=== PATIENT | female | born 1995 | race Asian ===

== ENCOUNTER 2016-10-19 08:30 | Inpatient (IN) | payer OTHER ==
[~2016-10-19] VITALS: Ht 152.4 cm; Wt 58.2 kg
[~2016-10-19 08:30] MED LIST: LORA10TA3 PO; OMEP20CA16 PO; PRENAT PO; PROM25SU40 PR
[2016-10-19] MEDS ORDERED: LACTATED RINGER'S 1,000 ML IV PRN (09:30)
[2016-10-19 09:51] VITALS: Ht 152.4 cm; Wt 58.2 kg
[2016-10-19] MEDS ORDERED: BUTORPHANOL 2 MG INJ IV PRN (10:00)
[2016-10-19] MEDS ORDERED: MISOPROSTOL 200 MCG TAB PR PRN (10:00)
[2016-10-19] MEDS ORDERED: CARBOPROST 250 MCG INJ IM PRN (10:00)
[2016-10-19] MEDS ORDERED: LIDOCAINE 1% (MPF) 30 ML INJ INJ PRN (10:00)
[2016-10-19] MEDS ORDERED: METHYLERGONOVINE 0.2 MG INJ IM PRN (10:00)
[2016-10-19] MEDS ORDERED: OXYTOCIN 30 UNITS/LR 500 ML IV PRN (10:00)
[2016-10-19] MEDS ORDERED: OXYTOCIN 30 UNITS/LR 500 ML IV SCH ×2 (10:00)
[2016-10-19 10:14] LABS: ADD SCAN DIFF NO
[2016-10-19 10:20] LABS: BASOPHILS % 0.4 % (0.0-2.0); EOSINOPHILS # 0.2 10^3/ul (0.0-0.5); EOSINOPHILS % 1.4 % (0.0-7.0); HEMOGLOBIN 12.3 g/dl (12.0-16.0); LYMPHOCYTES # 1.8 10^3/ul (0.8-2.9); LYMPHOCYTES % 17.5 % (15.0-51.0); MEAN CORPUSCULAR HGB CONC 32.4 g/dl (32.0-37.0); MEAN CORPUSCULAR VOLUME 89.6 fl (82.0-101.0); MEAN PLATELET VOLUME 12.4 fl (7.4-10.4); MONOCYTE # 0.7 10^3/ul (0.3-0.9); MONOCYTES % 6.2 % (0.0-11.0); NEUTROPHIL # 7.7 10^3/ul (1.6-7.5); NEUTROPHILS % 73.5 % (39.0-77.0); PLATELET COUNT 182 10^3/UL (140-415); RED BLOOD COUNT 4.24 10^6/ul (4.20-5.40); RED CELL DISTRIBUTION WIDTH 14.8 % (11.5-14.5); WHITE BLOOD COUNT 10.4 10^3/ul (4.8-10.8)
[2016-10-19] MEDS: LACTATED RINGER'S 1,000 ML IV SCH ×3 (10:24→23:09)
[2016-10-19] MEDS ORDERED: DINOPROSTONE 10 MG VAG SUPP VAG ONE (10:30)
[2016-10-19 10:33] LABS: INR 0.86; PROTIME 11.7 Sec (12.2-14.2); PT RATIO 0.9
[2016-10-19] MEDS ORDERED: DEXTROSE 5%-LR 1,000 ML IV SCH (21:30)
[2016-10-19] MEDS ORDERED: DEXTROSE 5%-LR 1,000 ML IV PRN (21:30)
[2016-10-19] MEDS: LABETALOL 100 MG TAB PO SCH (21:59)
[2016-10-19 22:16] LABS: ADD SCAN DIFF NO
[2016-10-19 22:20] LABS: BASOPHILS % 0.4 % (0.0-2.0); EOSINOPHILS # 0.1 10^3/ul (0.0-0.5); EOSINOPHILS % 1.3 % (0.0-7.0); HEMATOCRIT 33.8 % (37.0-47.0); HEMOGLOBIN 11.4 g/dl (12.0-16.0); LYMPHOCYTES # 1.9 10^3/ul (0.8-2.9); LYMPHOCYTES % 20.5 % (15.0-51.0); MEAN CORPUSCULAR HEMOGLOBIN 29.7 pg (29.0-33.0); MEAN CORPUSCULAR HGB CONC 33.7 g/dl (32.0-37.0); MEAN PLATELET VOLUME 12.3 fl (7.4-10.4); MONOCYTE # 0.8 10^3/ul (0.3-0.9); NEUTROPHIL # 6.5 10^3/ul (1.6-7.5); NEUTROPHILS % 69.2 % (39.0-77.0); PLATELET COUNT 171 10^3/UL (140-415); RED BLOOD COUNT 3.84 10^6/ul (4.20-5.40); RED CELL DISTRIBUTION WIDTH 14.6 % (11.5-14.5); WHITE BLOOD COUNT 9.4 10^3/ul (4.8-10.8)
[2016-10-19 22:34] LABS: POTASSIUM 3.7 mmol/L (3.5-5.1)
[2016-10-19 22:36] LABS: ALBUMIN/GLOBULIN RATIO 1.03; BILIRUBIN,INDIRECT 0.1 mg/dl (0-1.1); BILIRUBIN,TOTAL 0.1 mg/dl (0.2-1.3); CREATININE 0.55 mg/dl (0.44-1.00); INR 0.86; PROTIME 11.7 Sec (12.2-14.2); PT RATIO 0.9; TOTAL PROTEIN 5.9 g/dl (6.1-8.1)
[2016-10-19 22:37] LABS: CALCIUM 8.7 mg/dl (8.4-10.2); PARTIAL THROMBOPLASTIN TIME 26.1 Sec (25.0-35.0); URIC ACID 6.6 mg/dl (3.1-7.9)
[2016-10-19 22:51] LABS: FIBRIN SPLIT PRODUCT <10 ug/ml (<10)
[2016-10-19 23:51] LABS: ADD UMIC NO; URINE BILIRUBIN (Dip) NEGATIVE (NEGATIVE); URINE BLOOD (Dip) NEGATIVE (NEGATIVE); URINE COLOR LT. YELLOW (YELLOW); URINE GLUCOSE (Dip) NEGATIVE (NEGATIVE); URINE KETONES (Dip) NEGATIVE (NEGATIVE); URINE LEUKOCYTE ESTERASE (Dip) NEGATIVE (NEGATIVE); URINE NITRITE (Dip) NEGATIVE (NEGATIVE); URINE TOTAL PROTEIN (Dip) NEGATIVE (NEGATIVE); URINE UROBILINOGEN (Dip) 0.2 E.U./dL (0.1-1.0)
[2016-10-20] VITALS (7 sets, daily range): BP systolic 115–142; BP diastolic 67–87; PULSE 74–93; RESP 18–20
[2016-10-20] MEDS ORDERED: MAGNESIUM SULFATE 20 GM/500 ML 500 ML IV SCH (03:30)
[2016-10-20] MEDS ORDERED: MAGNESIUM SULFATE 4 GM/100 ML 100 ML IVPB ONE (03:30)
[2016-10-20] MEDS ORDERED: DEXTROSE 5%-LR 1,000 ML IV SCH (08:30)
[2016-10-20 09:44] LABS: ADD SCAN DIFF NO
[2016-10-20 09:45] LABS: BASOPHIL # 0.1 10^3/ul (0.0-0.1); BASOPHILS % 0.6 % (0.0-2.0); EOSINOPHILS # 0.2 10^3/ul (0.0-0.5); EOSINOPHILS % 1.9 % (0.0-7.0); HEMATOCRIT 35.6 % (37.0-47.0); HEMOGLOBIN 11.8 g/dl (12.0-16.0); LYMPHOCYTES # 1.8 10^3/ul (0.8-2.9); LYMPHOCYTES % 17.9 % (15.0-51.0); MEAN CORPUSCULAR HEMOGLOBIN 29.6 pg (29.0-33.0); MEAN CORPUSCULAR HGB CONC 33.1 g/dl (32.0-37.0); MEAN CORPUSCULAR VOLUME 89.2 fl (82.0-101.0); MEAN PLATELET VOLUME 12.6 fl (7.4-10.4); MONOCYTE # 0.6 10^3/ul (0.3-0.9); MONOCYTES % 6.4 % (0.0-11.0); NEUTROPHIL # 7.1 10^3/ul (1.6-7.5); NEUTROPHILS % 72.3 % (39.0-77.0); PLATELET COUNT 188 10^3/UL (140-415); RED BLOOD COUNT 3.99 10^6/ul (4.20-5.40); RED CELL DISTRIBUTION WIDTH 14.6 % (11.5-14.5); WHITE BLOOD COUNT 9.8 10^3/ul (4.8-10.8)
[2016-10-20 09:59] LABS: ALBUMIN 3.2 g/dl (3.3-4.9)
[2016-10-20 10:00] LABS: POTASSIUM 4.1 mmol/L (3.5-5.1)
[2016-10-20 10:02] LABS: ALBUMIN/GLOBULIN RATIO 0.86; BILIRUBIN,INDIRECT 0.1 mg/dl (0-1.1); BILIRUBIN,TOTAL 0.1 mg/dl (0.2-1.3); CREATININE 0.53 mg/dl (0.44-1.00); TOTAL PROTEIN 6.9 g/dl (6.1-8.1)
[2016-10-20 10:03] LABS: CALCIUM 8.2 mg/dl (8.4-10.2)
[2016-10-20] MEDS ORDERED: LACTATED RINGER'S 1,000 ML IV ONE (10:36)
[2016-10-20] MEDS ORDERED: CEFAZOLIN 2 GM/50 ML (PMX) 50 ML IVPB ONE (10:40)
[2016-10-20] MEDS: LABETALOL 100 MG TAB PO SCH ×2 (10:46→21:33)
[2016-10-20] MEDS ORDERED: CEFAZOLIN 2 GM/50 ML (PMX) 50 ML IVPB SCH (11:00)
[2016-10-20] MEDS ORDERED: CITRIC ACID/NA CITRATE 30 ML CUP PO ONE (11:00)
[2016-10-20] MEDS ORDERED: ONDANSETRON 4 MG INJ IV ONE (11:00)
[2016-10-20] MEDS ORDERED: METOCLOPRAMIDE 10 MG INJ ONE (11:15)
[2016-10-20] MEDS ORDERED: FENTAnyl 50 MCG/ML VIAL ONE (11:15)
[2016-10-20] MEDS ORDERED: morphine SULFATE/PF (10 MG/10 ML) INJ ONE (11:15)
[2016-10-20] MEDS ORDERED: DIPHENHYDRAMINE 50 MG INJ ONE (12:10)
[2016-10-20] MEDS ORDERED: EPHEDrine SULFATE 50 MG/5 ML SYG ONE (12:11)
[2016-10-20] MEDS ORDERED: MEPERIDINE 100 MG INJ ONE (12:38)
[2016-10-20] MEDS ORDERED: ONDANSETRON 4 MG INJ IV PRN (13:00)
[2016-10-20] MEDS ORDERED: NALOXONE (0.4 MG/ML) INJ IV PRN (13:00)
[2016-10-20] MEDS ORDERED: PROCHLORPERAZINE 10 MG INJ IV PRN (13:00)
[2016-10-20] MEDS ORDERED: KETOROLAC 30 MG INJ IV PRN (13:00)
[2016-10-20] MEDS ORDERED: DIPHENHYDRAMINE 50 MG INJ IV PRN (13:00)
[2016-10-20] MEDS ORDERED: HYDROmorphONE 1 MG/ML SYG IV PRN ×2 (13:00)
[2016-10-20] MEDS ORDERED: LACTATED RINGER'S 1,000 ML IV SCH (13:05)
--- NOTE | 2016-10-20 13:14 | PREOPHP ---
DATE OF ADMISSION: 10/19/2016 HISTORY OF PRESENT ILLNESS: This is a 21-year-old female 1, para 0 with an EDC of 7. This patient came early in for care. She had an uneventful and she was diagnosed with gestational diabetes and diet control. The patient was admitted for induction o f labor, which was with no progress of labor and she started having severe headache with no resoluti on of her headache. She was given IV magnesium sulfate and also labetalol 100 mg b.i.d. due to bord kalina hypertension. Her laboratory testing for PIH were all normal except for uric acid that was e levated. The patient was not having any hyperreflexia, normal reflexes and no edema, but she had a continuous headache. The patient was advised for a primary section due to the extreme head ache that she was having continuously without alleviation and also because of no progress of labor. PAST MEDICAL HISTORY: Unremarkable. ALLERGIES: 1. TYLENOL 2. IBUPROFEN PAST SURGICAL HISTORY: She had never had any surgeries. SOCIAL HISTORY: Denies. FAMILY HISTORY: No family history of medical antecedents as well. PHYSICAL EXAMINATION: VITAL SIGNS: Blood pressure is 120/80 on labetalol 100 mg b.i.d. HEAD AND NECK: Normal. CHEST: Clear. HEART: Normal sinus rhythm. LUNGS: Clear. BREASTS: Soft, nontender, no masses. ABDOMEN: Soft. Uterus at term with normal heart tones. PELVIC: With the cervix that is fingertip dilated, fixed, 50% effaced, soft, -3. Membranes intact. EXTREMITIES: Normal with normal pulses, no edema. Normal reflexes. DIAGNOSES: 1. Term . 2. Gestational diabetes mellitus, diet controlled. 3. No progress of labor. 4. Mild induced hypertension. PLAN: She is undergoing a primary section. She has been advised of the possible risks and possible complications of the procedure with her alternatives and options. Written information was provided. She had no more questions and agreed to go ahead with the procedure with full understand ing and no more questions. Dictated By: YOVANA PERALTA/NTS Conf#: [id number] DID#: [id number]
[2016-10-20] MEDS ORDERED: OXYTOCIN 30 UNITS/LR 500 ML IV ONE (13:17)
--- NOTE | 2016-10-20 13:26 | OPR ---
DATE OF OPERATION: 10/20/2016 PROCEDURE: Primary low segment transverse section. PREOPERATIVE DIAGNOSES: 1. Term . 2. Gestational diabetes mellitus, diet controlled. 3. No progress of labor. 4. Mild -induced hypertension. POSTOPERATIVE DIAGNOSES: 1. Term . 2. Gestational diabetes mellitus, diet controlled. 3. No progress of labor. 4. Mild -induced hypertension. SURGEON: Dr. Paez SCIENCE FACULTY MEMBER: ____ ANESTHESIOLOGIST: Dr. Loja ANESTHESIA: Spinal. PROCEDURE: The patient was given a spinal anesthesia, placed in the supine position. The abdomen w as prepped and draped, and a Kline catheter was placed in the bladder. The transverse incision marck g 2 cm up the pubic bone was made. The abdomen was opened in layers without difficulties. Abdomina l cavity was reached and the self-retaining Mario retractor was placed and the bladder flap was mad e. The uterus was opened in the midline with a scalpel and the incision was increased laterally for about 3 inches. The amniotic fluid was clear. The baby's head was large. The cord was passed olayinka und the baby's head and with the help of a vacuum due to the size of the head, we delivered her. Th e baby was large. The cord was clamped and cut. The baby was handed over to the anesthesiologist hossein jha. A piece of the cord was collected to be sent for cord pH, but the baby's status was good, so w e did not send it. Cord blood was obtained. The placenta was removed. The cervix was opened with a ring forceps and the uterus was closed with #1 looped suture continuously in 2 layers. Hemostasis was good and a few interrupted sutures were placed with 0 chromic automatic needle. The tubes and ovaries and uterus appeared to be normal. The abdomen was cleaned out from ____ products and a piec e of Interceed was placed on the incisional area for prevention of adhesions. The peritoneum was cl osed with a 2-0 Vicryl suture. The fascia was closed with 0 PDS looped suture. The subcutaneous ti ssue was closed with a 2-0 Vicryl suture and the skin was closed with a 3-[address] itch. Steri-Strips and Dermabond were applied. The patient tolerated the procedure well and left t he OR awake and stable. Sponge counts, instrument counts, needle counts were correct and intravenou s antibiotics were given for prophylaxis. Dictated By: YOVANA PERALTA/SUMA Conf#: [id number] DID#: [id number]
[2016-10-20] MEDS ORDERED: NA PHOSPHATE/BIPHOS 133 ML ENEMA PR PRN (13:30)
[2016-10-20] MEDS ORDERED: METHYLERGONOVINE 0.2 MG TAB PO PRN (13:30)
[2016-10-20] MEDS ORDERED: PROMETHAZINE 25 MG SUPP PR PRN (13:30)
[2016-10-20] MEDS ORDERED: METHYLERGONOVINE 0.2 MG INJ IM PRN (13:30)
[2016-10-20] MEDS ORDERED: OXYTOCIN 30 UNITS/LR 500 ML IV PRN (13:30)
[2016-10-20] MEDS ORDERED: MISOPROSTOL 200 MCG TAB PR PRN (13:30)
[2016-10-20] MEDS ORDERED: LANOLIN 7 GM TUBE TOP PRN (13:30)
[2016-10-20] MEDS ORDERED: CARBOPROST 250 MCG INJ IM PRN (13:30)
[2016-10-20] MEDS: OXYTOCIN 30 UNITS/LR 500 ML IV SCH ×2 (13:42→19:41)
[2016-10-20] MEDS ORDERED: MAGNESIUM SULFATE 1 GM/D5W 100 ML IVPB SCH (14:00)
[2016-10-20] MEDS: MAGNESIUM SULFATE 20 GM/500 ML 500 ML IV SCH ×2 (14:29→17:20)
[2016-10-20] MEDS: CEFAZOLIN 1 GM/50 ML (PMX) 50 ML IVPB SCH (17:16)
[2016-10-20] MEDS: SENNA/DOCUSATE NA (8.6MG/50MG) TAB PO SCH (21:00)
[2016-10-20] MEDS ORDERED: LABETALOL 100 MG TAB PO SCH (21:30)
[2016-10-21] VITALS (13 sets, daily range): BP systolic 119–145; BP diastolic 62–91; PULSE 83–105; RESP 18–20
[2016-10-21] MEDS: CEFAZOLIN 1 GM/50 ML (PMX) 50 ML IVPB SCH ×2 (02:34→10:53)
[2016-10-21] MEDS: oxyCODONE 5 MG TAB PO PRN ×2 (02:34→15:44)
[2016-10-21] MEDS: PANTOPRAZOLE (EC) 40 MG TAB PO SCH (05:56)
[2016-10-21 07:56] LABS: ADD SCAN DIFF NO
[2016-10-21 08:00] LABS: BASOPHILS % 0.3 % (0.0-2.0); EOSINOPHILS # 0.1 10^3/ul (0.0-0.5); HEMATOCRIT 34.5 % (37.0-47.0); HEMOGLOBIN 11.5 g/dl (12.0-16.0); LYMPHOCYTES # 1.6 10^3/ul (0.8-2.9); LYMPHOCYTES % 11.8 % (15.0-51.0); MEAN CORPUSCULAR HEMOGLOBIN 29.3 pg (29.0-33.0); MEAN CORPUSCULAR HGB CONC 33.3 g/dl (32.0-37.0); MEAN PLATELET VOLUME 11.6 fl (7.4-10.4); MONOCYTE # 0.8 10^3/ul (0.3-0.9); MONOCYTES % 5.6 % (0.0-11.0); NEUTROPHIL # 10.9 10^3/ul (1.6-7.5); NEUTROPHILS % 80.9 % (39.0-77.0); PLATELET COUNT 152 10^3/UL (140-415); RED BLOOD COUNT 3.92 10^6/ul (4.20-5.40); RED CELL DISTRIBUTION WIDTH 14.8 % (11.5-14.5); WHITE BLOOD COUNT 13.5 10^3/ul (4.8-10.8)
[2016-10-21] MEDS: SENNA/DOCUSATE NA (8.6MG/50MG) TAB PO SCH ×2 (08:18→21:36)
[2016-10-21] MEDS: LABETALOL 100 MG TAB PO SCH ×2 (08:20→21:00)
[2016-10-21 08:43] LABS: ALBUMIN 2.7 g/dl (3.3-4.9)
[2016-10-21 08:44] LABS: POTASSIUM 4.1 mmol/L (3.5-5.1)
[2016-10-21 08:46] LABS: ALBUMIN/GLOBULIN RATIO 0.72; BILIRUBIN,INDIRECT 0.2 mg/dl (0-1.1); BILIRUBIN,TOTAL 0.2 mg/dl (0.2-1.3); CREATININE 0.63 mg/dl (0.44-1.00); TOTAL PROTEIN 6.4 g/dl (6.1-8.1); URIC ACID 7.2 mg/dl (3.1-7.9)
[2016-10-21 08:47] LABS: CALCIUM 7.6 mg/dl (8.4-10.2)
[2016-10-21 09:42] LABS: INR 0.93; PARTIAL THROMBOPLASTIN TIME 28.4 Sec (25.0-35.0); PROTIME 12.5 Sec (12.2-14.2)
--- NOTE | 2016-10-21 10:43 | PN ---
Date/Time of Note Date/Time of Note DATE: 10/21/16 TIME: 10:42 Assessment/Plan Lines/Catheters IV Catheter Type (from Nrsg): Peripheral IV Subjective 24 Hr Interval Summary feels good, not in pain gassy and having no headaches Constitutional: BM, ambulates, flatus, improved, no complaints, urine output Feeding: advancing diet Detailed Summary Eyes: no complaints ENT: no complaints Respiratory: no complaints Cardiovascular: no complaints Gastrointestinal: no complaints Genitourinary: no complaints Musculoskeletal: no complaints Skin: no complaints Neurologic: no complaints Endocrine: no complaints Lymphatic: no complaints Psychological: nl mood/affect, no complaints Immunologic: no complaints Exam/Review of Systems Vital Signs Vitals Vital Signs Date Time Temp Pulse Resp B/P Pulse Ox O2 Delivery O2 Flow Rate FiO2 10/21/16 09:00 91 18 125/84 Room Air 10/21/16 08:00 99.7 10/21/16 03:05 96 21 Intake and Output 10/20/16 10/20/16 10/21/16 15:00 23:00 07:00 Intake Total 1700 ml 300 ml Output Total 1500 ml 3900 ml 1500 ml Balance 200 ml -3600 ml -1500 ml Exam Constitutional: alert, oriented, well developed Psych: nl mood/affect, no complaints Head: atraumatic, normocephalic Eyes: EOMI, nl conjunctiva, nl lids, nl sclera ENMT: mucosa pink and moist, nl external ears & nose, nl lips & teeth, nl nasal mucosa & septum Neck: non-tender, supple Respiratory: clear to auscultation, normal air movement Cardiovascular: nl pulses, regular rate and rhythm Gastrointestinal: nl liver, spleen, non-tender, soft Musculoskeletal: nl extremities to inspection, nl gait and stance Extremities: normal pulses Neurological: GENERAL ADJUSTER II-XII intact, nl mental status, nl speech, nl strength Skin: nl turgor, rash or lesions Lymph: nl lymph nodes Results Result Diagram: 10/21/16 0730 10/21/16 0730 YOVANA ANDREA MD Oct 21, 2016 10:43
[2016-10-21 10:54] LABS: FIBRIN SPLIT PRODUCT <10 ug/ml (<10)
[2016-10-21] MEDS ORDERED: BISACODYL (EC) 5 MG TAB PO ONE (11:00)
[2016-10-21] MEDS: METOCLOPRAMIDE 10 MG INJ IV SCH ×2 (12:08→19:00)
[2016-10-22] VITALS (7 sets, daily range): BP systolic 114–137; BP diastolic 63–87; PULSE 72–97; RESP 16–19
[2016-10-22] MEDS: METOCLOPRAMIDE (1 MG/ML) 10 ML CUP PO SCH ×4 (00:13→17:47)
[2016-10-22] MEDS: oxyCODONE 5 MG TAB PO PRN ×4 (04:02→23:17)
[2016-10-22] MEDS: PANTOPRAZOLE (EC) 40 MG TAB PO SCH (05:51)
[2016-10-22] MEDS: SENNA/DOCUSATE NA (8.6MG/50MG) TAB PO SCH ×2 (09:00→21:14)
[2016-10-22] MEDS: LABETALOL 100 MG TAB PO SCH ×2 (09:00→21:14)
--- NOTE | 2016-10-22 11:07 | PN ---
Date/Time of Note Date/Time of Note DATE: 10/22/16 TIME: 11:05 Assessment/Plan Lines/Catheters IV Catheter Type (from Nrsg): Peripheral IV Subjective 24 Hr Interval Summary day 2 post c/s afebrile, feels good. had BM having pain, still bloated lochia is normal Constitutional: BM, ambulates, flatus, improved, no complaints, urine output Feeding: advancing diet Detailed Summary Eyes: no complaints ENT: no complaints Respiratory: no complaints Cardiovascular: no complaints Gastrointestinal: no complaints Genitourinary: no complaints Musculoskeletal: no complaints Skin: no complaints Neurologic: no complaints Endocrine: no complaints Lymphatic: no complaints Psychological: nl mood/affect, no complaints Immunologic: no complaints Exam/Review of Systems Vital Signs Vitals Vital Signs Date Time Temp Pulse Resp B/P Pulse Ox O2 Delivery O2 Flow Rate FiO2 10/22/16 08:00 98.9 89 18 119/71 Room Air 10/21/16 03:05 96 21 Intake and Output 10/21/16 10/21/16 10/22/16 15:00 23:00 07:00 Intake Total 800 ml Output Total 2500 ml 1000 ml Balance -1700 ml -1000 ml Exam Constitutional: alert, oriented, well developed Psych: nl mood/affect, no complaints Head: atraumatic, normocephalic Eyes: EOMI, nl conjunctiva, nl lids, nl sclera ENMT: mucosa pink and moist, nl external ears & nose, nl lips & teeth, nl nasal mucosa & septum Neck: non-tender, supple Respiratory: clear to auscultation, normal air movement Cardiovascular: nl pulses, regular rate and rhythm Gastrointestinal: nl liver, spleen, non-tender, soft Musculoskeletal: nl extremities to inspection, nl gait and stance Extremities: normal pulses Neurological: FIRST AID TEACHER II-XII intact, nl mental status, nl speech, nl strength Skin: nl turgor, rash or lesions Lymph: nl lymph nodes Results Result Diagram: 10/21/1630 10/21/16 0730 YOVANA ANDREA MD Oct 22, 2016 11:07
[2016-10-22] MEDS ORDERED: BISACODYL (EC) 5 MG TAB PO ONE (11:30)
[2016-10-23] VITALS: BP 154/91; PULSE 111; RESP 19
[2016-10-23 00:10] VITALS: BP 138/91; PULSE 107; RESP 20
[2016-10-23 01:00] VITALS: BP 116/79; PULSE 81
--- NOTE | 2016-10-23 01:24 | RADRPT ---
PROCEDURE: CT brain without contrast. CLINICAL INDICATION: Altered mental status. TECHNIQUE: CT scan of the brain was performed on a multi-detector high-resolution CT scanner. Co ntiguous axial images were obtained from the skull base to the vertex without intravenous contrast. Coronal and sagittal reformatted images were also obtained. Images were reviewed on the PACS works tation. One or more of the following dose reduction techniques were used: - Automated exposure control. - Adjustment of the mA and/or kV according to patient size. - Use of iterative reconstruction technique. Exam CTD/vol = 39.64 mGy. Total exam DLP = 634.23 mGy-cm. COMPARISON: None. FINDINGS: The ventricles and cortical sulci are within normal limits for patient's age. There are no areas of abnormal attenuation within the brain parenchyma. There is no mass effect or midline shift. There is no intracranial hemorrhage or abnormal extra-axial collection. The calvarium is intact. There is no evidence of fracture. Visualized paranasal sinuses and mastoid air cells are clear. IMPRESSION: No acute intracranial abnormality identified. .William Harrison MD, MD Date Time Electronically viewed and signed by .William Harrison MD, MD on 10/23/2016 01:24 .T/
[2016-10-23 03:45] VITALS: BP 123/87; PULSE 88; RESP 18
[2016-10-23] MEDS: oxyCODONE 5 MG TAB PO PRN ×2 (05:22→11:41)
[2016-10-23] MEDS: PANTOPRAZOLE (EC) 40 MG TAB PO SCH (05:57)
[2016-10-23] MEDS: METOCLOPRAMIDE (1 MG/ML) 10 ML CUP PO SCH ×3 (06:00→11:41)
[2016-10-23 07:45] VITALS: BP 125/63; PULSE 85; RESP 18
[2016-10-23] MEDS: LABETALOL 100 MG TAB PO SCH (09:00)
[2016-10-23] MEDS: SENNA/DOCUSATE NA (8.6MG/50MG) TAB PO SCH (09:00)
[2016-10-23] MEDS ORDERED: DIPHTH/TET/ACEL PERTUSS (ADULT) 0.5 ML VIAL IM* ONE (09:00)
[2016-10-23 11:41] VITALS: BP 125/82; PULSE 77; RESP 18
--- NOTE | 2016-10-23 13:43 | RADRPT ---
Vent Rate: 90 bpm RR Interval: 0 msec OR Interval: 122 msec QRS Duration: 78 msec QT Interval: 362 msec QTC Interval: 442 msec P-R-T [place]: 30 - 37 - 32 degrees Normal sinus rhythm Cannot rule out Anterior infarct , age undetermined Abnormal ECG Electronically Signed By: Donal Joshua [id number]
--- NOTE | 2016-10-23 14:02 | DS ---
DATE OF ADMISSION: 10/19/2016 DATE OF DISCHARGE: HISTORY: This is a 21-year-old female, 1, para 0 with an EDC of 10/24/2016. The patient reddy d care with me in the office since early . She had no complications except for in the second trimester she began to be diabetic with gestational diabetes A1. She was being controll ed with diet alone and she was coming for NSTs, BPPs that were normal. On the day of the admission, she was admitted for induction of labor, which did not progress and the patient started becoming wi th mild preeclampsia for which she was treated and a primary section was done because she d id not progress in her labor. The patient did very well after and she was ambulatory. She was void ing well. She was with a bowel movement. On her second postoperative day she had an episode of dis orientation where she could not talk to her . The ER physician was called and EKG, chest x-r ay and CT scan of the brain were done with normal findings. Her blood pressures have been controlle d on labetalol and skipping many doses due to normalized blood pressure. She has no headache. She had no dizziness; no epigastric pain, no blurry vision, normal reflexes, no edema and she had been c ontrolled otherwise. The episode that she had we probably consider that as a panic attack since she was with normal vital signs and all the tests were normal. The patient today has been taking her me dications. She is in better condition. She does not have any problems with the medication and she is ambulatory with a clean incision, afebrile and feeling well with no complaints and ready to go ho me. The patient is stable, in good condition. POSTOPERATIVE DIAGNOSES: 1. No progress of labor, gestational diabetes mellitus A1. 2. Mild preeclampsia. DISCHARGE MEDICATION: 1. She is being discharged on labetalol 50 mg b.i.d. p.r.n. 2. She has been discharged on [place]. 3. Ibuprofen. She is to call me if she had any problems and she and her were explained to see me if all th e signs of preeclampsia were advised, and she was supposed to go home on the labetalol, [place] and ib uprofen for pain. She will call if she has any symptoms or signs that we already explained. She wi ll see me anyway in 1 week. Dictated By: YOVANA PERALTA/SUMA Conf#: [id number] DID#: [id number]
== END 2016-10-23 15:05 | disposition home or self-care (01) | DRG 766 ==
LOC: L-D 09:19 → PP1 10-20 15:59
PROVIDERS: ADMIT Obstetrics & Gynecology; ATTEND Obstetrics & Gynecology
PROC: 10D00Z1 Extraction of Products of Conception, Low, Open Approach (ICD-10-PCS; principal; 2016-10-20 12:00)
DX: O14.94 Unspecified pre-eclampsia, complicating childbirth (principal); O24.429 Gestational diabetes mellitus in childbirth, unspecified control; O62.0 Primary inadequate contractions; Z3A.39 39 weeks gestation of pregnancy; Z37.0 Single live birth
CPT/HCPCS: 70450; 80053; 80076; 81003; 82962; 83735; 84484; 84560; 85025; 85362; 85384; 85610; 85730; 86592; 86850; 86900; 86901; 87340; 90715; 93005; 94760; 99464; J0690; J1200; J2175; J2274; J2405; J2590; J2765; J3010; J3475; J7120

== ENCOUNTER 2016-12-21 08:13 | Day surgery (SDC) | payer OTHER ==
[2016-12-18 12:32] VITALS: Ht 152.4 cm; Wt 45.0 kg
[~2016-12-21] VITALS: Ht 152.4 cm; Wt 45.0 kg
[2016-12-21] VITALS (13 sets, daily range): BP systolic 92–120; BP diastolic 46–72; PULSE 62–83; RESP 15–19
[~2016-12-21 08:13] MED LIST changes: -LORA10TA3 PO; -OMEP20CA16 PO; -PROM25SU40 PR
--- NOTE | 2016-12-21 09:13 | RADRPT ---
PROCEDURE: XR Chest. CLINICAL INDICATION: Preop. Bartholin cyst removal. TECHNIQUE: Single AP portable chest COMPARISON: 11/28/2013 Chest x-ray FINDINGS: The cardiomediastinal silhouette is within normal limits of size. The lungs are clear without pleur al effusion or focal consolidation. No pneumothorax. The osseous structures and soft tissues are unr emarkable. IMPRESSION: 1. No evidence for active cardiopulmonary disease. RPTAT:AAJJ Physician Joyce Date Time Electronically viewed and signed by Physician Joyce on 12/21/2016 09:12 JAMAR/
[2016-12-21] MEDS ORDERED: LIDOCAINE 1%/EPI 30 ML INJ ONE (09:17)
[2016-12-21 09:33] LABS: ADD SCAN DIFF NO
[2016-12-21 09:35] LABS: ADD UMIC NO; URINE BILIRUBIN (Dip) NEGATIVE (NEGATIVE); URINE BLOOD (Dip) NEGATIVE (NEGATIVE); URINE COLOR LT. YELLOW (YELLOW); URINE GLUCOSE (Dip) NEGATIVE (NEGATIVE); URINE KETONES (Dip) NEGATIVE (NEGATIVE); URINE LEUKOCYTE ESTERASE (Dip) NEGATIVE (NEGATIVE); URINE NITRITE (Dip) NEGATIVE (NEGATIVE); URINE TOTAL PROTEIN (Dip) NEGATIVE (NEGATIVE); URINE UROBILINOGEN (Dip) 0.2 E.U./dL (0.1-1.0)
[2016-12-21 09:42] LABS: BASOPHIL # 0.1 10^3/ul (0.0-0.1); BASOPHILS % 0.9 % (0.0-2.0); EOSINOPHILS # 0.3 10^3/ul (0.0-0.5); EOSINOPHILS % 4.2 % (0.0-7.0); HEMATOCRIT 37.2 % (37.0-47.0); HEMOGLOBIN 11.7 g/dl (12.0-16.0); LYMPHOCYTES # 2.4 10^3/ul (0.8-2.9); LYMPHOCYTES % 34.2 % (15.0-51.0); MEAN CORPUSCULAR HEMOGLOBIN 27.5 pg (29.0-33.0); MEAN CORPUSCULAR HGB CONC 31.5 g/dl (32.0-37.0); MEAN CORPUSCULAR VOLUME 87.5 fl (82.0-101.0); MEAN PLATELET VOLUME 10.6 fl (7.4-10.4); MONOCYTE # 0.4 10^3/ul (0.3-0.9); MONOCYTES % 5.5 % (0.0-11.0); NEUTROPHIL # 3.8 10^3/ul (1.6-7.5); NEUTROPHILS % 54.9 % (39.0-77.0); PLATELET COUNT 331 10^3/UL (140-415); RED BLOOD COUNT 4.25 10^6/ul (4.20-5.40); RED CELL DISTRIBUTION WIDTH 12.8 % (11.5-14.5); WHITE BLOOD COUNT 6.9 10^3/ul (4.8-10.8)
[2016-12-21] MEDS ORDERED: MIDAZOLAM 1 MG/ML 2 ML INJ ONE (09:56)
[2016-12-21] MEDS ORDERED: FENTAnyl 50 MCG/ML VIAL ONE (09:56)
--- NOTE | 2016-12-21 09:56 | HPN ---
Date/Time of Note Date/Time of Note DATE: 12/21/16 TIME: 09:56 Interval H&P Admission Note Pt. seen H&P reviewed: No system changes YOVANA ANDREA MD December 21, 2016 09:56
[2016-12-21 09:58] LABS: INR 0.91; PROTIME 12.2 Sec (12.2-14.2)
[2016-12-21 09:59] LABS: PARTIAL THROMBOPLASTIN TIME 32.6 Sec (25.0-35.0)
--- NOTE | 2016-12-21 10:29 | PREOPHP ---
DATE OF ADMISSION: 12/21/2016 HISTORY OF PRESENT ILLNESS: This is a 21-year-old female, 1, para 1. This patient has had a recent section, 10/20/2016. She had come in due to a mass that came out on her left vagi nal labial area that turned out to be a left Bartholin's cyst that is about 5 cm. The patient is reddy ving some pain and she is being admitted as an outpatient for marsupialization of the left Bartholin 's cyst. REVIEW OF SYSTEMS: Unremarkable. PAST MEDICAL HISTORY: She had gestational diabetes, diet controlled, during her that carlos jose juan after delivery. She had no medical antecedents. ALLERGIES: SHE DOES HAVE AN ALLERGY TO ADVIL AND TYLENOL. THE PATIENT ALSO HAS HISTORY OF BEING VE RY ALLERGIC TO TAPES, BUT SHE DOES NOT KNOW WHAT SHE IS ALLERGIC TO ENVIRONMENTAL CREAMS OR INGREDIE NTS. PAST SURGICAL HISTORY: She has had this . FAMILY HISTORY: Stroke. Otherwise she has been healthy. This patient had a Bartholin's cyst before . PHYSICAL EXAMINATION: VITAL SIGNS: Her blood pressure is 100/60. She weighs 101. She is 5 feet tall. GENERAL: She is in no acute distress, is , ____ oral contraceptives. HEAD AND NECK: Normal. CHEST: Clear. HEART: Normal sinus rhythm. LUNGS: Clear. BREASTS: Soft, nontender. No masses. ABDOMEN: Soft, nontender. No masses. PELVIC: With a left Bartholin's cyst. Uterus is normal in size. Adnexae are negative. EXTREMITIES: Normal. DIAGNOSIS: Left Bartholin's cyst. PLAN: She is undergoing a marsupialization of the left Bartholin cyst. She has been advised of the possible risks and possible complications of the procedure with her alternatives and options. Writ ten information was provided. She had no more questions and agreed to go ahead with the procedure w ith full understanding and no more questions. Dictated By: YOVANA PERALTA/NTS Conf#: [id number] DID#: [id number]
--- NOTE | 2016-12-21 10:36 | PD.PPDC ---
NURSING TEACHER Discharge Instruction Condition Patient Condition: Good Diet Diet: Resume Regular Diet Activity/Restrictions Activity: Normal Activity May Shower Restrictions: No Exercising No Lifting No Driving No Sexual Activity Nothing in the Vagina No [place] No Tampons, douche Follow-up Follow-up with Physician: 2 Return to clinic for ALUMNAE SECRETARY Instructions: Fever greater than 101 Chills Worsening abdominal pain Excessive Vaginal Bleeding More than 2 pads per hour Unable to tolerate diet YOVANA ANDREA MD December 21, 2016 10:36
[2016-12-21] MEDS ORDERED: ONDANSETRON 4 MG INJ ONE (10:37)
[2016-12-21] MEDS ORDERED: CEFAZOLIN 1 GM INJ ONE (10:37)
[2016-12-21] MEDS ORDERED: PROPOFOL 20 ML ONE (10:37)
[2016-12-21] MEDS ORDERED: LIDOCAINE 2% (SDV) 5 ML INJ ONE (10:37)
--- NOTE | 2016-12-21 10:45 | OPR ---
Date/Time of Note Date/Time of Note DATE: 12/21/16 TIME: 10:42 Operative Report Procedure Date: December 21, 2016 Preoperative Diagnosis LEFT BARTHOLIN CYST Postoperative Diagnosis SAME Operation Performed MARSUPIALIZATION OF LEFT BARTHOLIN CYST Surgeon: YOVANA ANDREA MD Anesthesia: general Anesthesiologist: LINUS MCKINLEY MD Estimated Blood Loss: minimal Complications: None Pt Condition Post Procedure: stable Disposition: PACU YOVANA ANDREA MD December 21, 2016 10:45
[2016-12-21] MEDS ORDERED: FENTAnyl 50 MCG/ML VIAL IV PRN (11:00)
[2016-12-21] MEDS ORDERED: MEPERIDINE 25 MG INJ IV PRN (11:00)
[2016-12-21] MEDS ORDERED: ONDANSETRON 4 MG INJ IV PRN (11:00)
--- NOTE | 2016-12-21 14:10 | OPR ---
DATE OF OPERATION: 12/21/2016 PROCEDURE: Marsupialization of left Bartholin cyst and application of left Bartholin catheter. PREOPERATIVE DIAGNOSIS: Left Bartholin cyst. POSTOPERATIVE DIAGNOSIS: Left Bartholin cyst. SURGEON: Yovana Paez MD ANESTHESIA: General. ANESTHESIOLOGIST: Dr. Rj Sam DESCRIPTION OF PROCEDURE: The patient was given general anesthesia, placed in the lithotomy positio n. The perineal and vaginal area were prepped and draped. The left Bartholin area was checked and a large cyst was seen about 5 cm in diameter, and a small incision was made at the muco-vaginal junc tion, and the drainage of the mucus was obvious. The cavity was debrided and the marsupialization w as done with interrupted sutures with ____ sutures with 2-0 chromic. Stitches were applied at 12 o' clock, 6 o'clock, and 9 o'clock, and 3 o'clock, and the Bartholin catheter was applied and a 5 mL sy ringe was used to fill up the balloon. The balloon was attached to the skin, and the patient tolera huey the procedure well and left the OR awake and stable. Sponge counts and instrument counts were c orrect. Intravenous antibiotics were given for prophylaxis. Blood loss was minimal. The urine was clear, and the cultures were done from the cysts for aerobic and anaerobic. The patient left the O R awake and stable. Sponge counts, instrument counts were correct. Dictated By: YOVANA PERALTA/SUMA Conf#: [id number] DID#: [id number]
--- NOTE | 2016-12-22 11:25 | RADRPT ---
Vent Rate: 61 bpm RR Interval: 0 msec ME Interval: 140 msec QRS Duration: 84 msec QT Interval: 398 msec QTC Interval: 400 msec P-R-T [place]: 51 - 65 - 55 degrees Normal sinus rhythm Normal ECG Electronically Signed By: Bishop Peter [id number]
== END 2016-12-21 12:40 | disposition home or self-care (01) ==
LOC: SDS 08:13
PROVIDERS: ATTEND Obstetrics & Gynecology
DX: N75.0 Cyst of Bartholin's gland (principal)
CPT/HCPCS: 56440; 71010; 81003; 84703; 85025; 85610; 85730; 87070; 87075; 93005; J0690; J2175; J2250; J2405; J3010; Z7512; Z7610

== ENCOUNTER 2018-07-03 20:26 | Emergency (ER) | END 2018-07-03 23:35 | disposition home or self-care (01) ==